=== PATIENT | male | born 1985 | race African-American/Black ===

== ENCOUNTER 2024-08-05 12:45 | Inpatient (IN) | payer OTHER ==
[2024-08-05 13:54] VITALS: BMI 28.8
[2024-08-05] MEDS ORDERED: chlordiazePOXIDE HCL 25 MG CAPSULE PO PRN (19:16)
[2024-08-05] MEDS ORDERED: MAG HYDROX/AL HYDROX/SIMETH 30 ML UNIT-DOSE CUP PO PRN (19:16)
[2024-08-05] MEDS ORDERED: BISMUTH SUBSALICYLATE 524 MG/30 ML PO PRN (19:16)
[2024-08-05] MEDS ORDERED: MAGNESIUM HYDROX 2400MG/30ML ORAL SUSPENSION 30 ML CUP PO PRN (19:16)
[2024-08-05] MEDS ORDERED: hydrOXYzine PAMOATE 25 MG CAPSULE (FP) PO PRN (19:16)
[2024-08-05] MEDS ORDERED: BENZONATATE 200 MG CAPSULE PO PRN (19:16)
[2024-08-05] MEDS ORDERED: ONDANSETRON *ODT* 4 MG TABLET SL PRN (19:16)
[2024-08-05] MEDS ORDERED: BENZOCAINE/MENTHOL (CHLORASEPTIC ) LOZENGE MM PRN (19:16)
[2024-08-05] MEDS ORDERED: ACETAMINOPHEN 325 MG TABLET (FP) PO PRN (19:16)
[2024-08-05] MEDS ORDERED: guaiFENesin 600 MG TABLET.ER (FP) PO PRN (19:16)
[2024-08-05] MEDS ORDERED: LOPERAMIDE HCL 2 MG CAPSULE PO PRN (19:16)
[2024-08-05] MEDS ORDERED: IBUPROFEN 400 MG TABLET (FP) PO PRN (19:16)
[2024-08-05] MEDS ORDERED: POLYETHYLENE GLYCOL (HEALTHYLAX) 3350 17 GM PACKET PO PRN (19:16)
[2024-08-05] MEDS ORDERED: DICYCLOMINE HCL 10 MG CAPSULE PO PRN (19:16)
[2024-08-05] MEDS ORDERED: METHOCARBAMOL 500 MG TABLET PO PRN (19:16)
[2024-08-05] MEDS ORDERED: IBUPROFEN 600 MG TABLET (FP) PO PRN (19:16)
[2024-08-05] MEDS ORDERED: NALOXONE (NARCAN) HCL 4 MG/0.1 ML SPRAY NS PRN (19:16)
[2024-08-05] MEDS: THIAMINE 100 MG TABLET PO SCH (22:14)
[2024-08-05] MEDS: MELATONIN 5 MG TABLETS PO SCH (22:14)
[2024-08-05] MEDS: chlordiazePOXIDE HCL 25 MG CAPSULE PO SCH (22:15)
[2024-08-06] MEDS: PRENATAL VITAMINS W/ FOLIC ACID TABLET (FP) PO SCH (10:38)
[2024-08-06 12:39] LABS: CHLORIDE 100 mmol/L (98-107); SODIUM 137 mmol/L (136-145)
[2024-08-06 13:04] LABS: ALBUMIN 3.8 g/dl (3.4-5.0); ANION GAP 7 mmol/L (4-13); BLOOD UREA NITROGEN 9.2 mg/dL (7-18); CALCIUM 9.5 mg/dL (8.5-10.1); CO2 30 mmol/L (21-32); GLUCOSE,RANDOM 104 mg/dL (74-106)
[2024-08-06 13:07] LABS: SGOT/AST 52 U/L (15-37); SGPT/ALT 181 U/L (13-61)
[2024-08-06 13:08] LABS: CREATININE 0.9 mg/dL (0.55-1.3)
[2024-08-06 13:09] LABS: BILIRUBIN,TOTAL 0.7 mg/dL (0.2-1); TOT PROT 7.4 g/dl (6.4-8.2)
[2024-08-06 13:10] LABS: ALK PHOS 51 U/L (45-117)
[2024-08-06 13:45] LABS: HEMATOCRIT 43.4 % (40.1-51.0); HEMOGLOBIN 15.2 g/dL (13.7-17.5); MEAN CELL VOLUME 92.9 fl (79.0-92.2); MEAN PLT VOLUME 11.8 fl (9.4-12.4); PLATELET COUNT 186 x10^3/uL (163-337); RDW 13.3 % (12.0-15.6)
[2024-08-07] MEDS: chlordiazePOXIDE HCL 25 MG CAPSULE PO SCH (05:56)
[2024-08-08] MEDS ORDERED: chlordiazePOXIDE HCL 10 MG CAPSULE PO PRN
[2024-08-08] MEDS: chlordiazePOXIDE HCL 10 MG CAPSULE PO SCH (05:49)
[2024-08-08] MEDS ORDERED: ACETAMINOPHEN 325 MG TABLET (FP) PO PRN (08:28)
[2024-08-08] MEDS: NALTREXONE HCL 50 MG TABLET PO SCH (10:10)
[2024-08-09] MEDS: chlordiazePOXIDE HCL 10 MG CAPSULE PO SCH (05:38)
[2024-08-09] MEDS: NALTREXONE HCL 50 MG TABLET PO ONE (13:14)
[2024-08-10] MEDS: chlordiazePOXIDE HCL 10 MG CAPSULE PO ONE (05:35)
[2024-08-10 09:11] VITALS: BP 132/75; PULSE 64; RESP 18; TEMP 96.9
[2024-08-10] MEDS: NALTREXONE HCL 50 MG TABLET PO SCH (10:11)
[2024-08-11] MEDS ORDERED: NALTREXONE MICROSPHERES (VIVITROL) 380 MG DISP.SYRIN IM ONE (06:00)
== END 2024-08-10 10:42 | disposition home or self-care (01) | DRG 775 ==
LOC: YASAS 12:45 → Y6N 20:16 → Y3N 20:23
PROVIDERS: ADMIT Allergy & Immunology; ATTEND Allergy & Immunology
PROC: HZ2ZZZZ Detoxification Services for Substance Abuse Treatment (ICD-10-PCS; principal; 2024-08-05)
DX: F10.230 Alcohol dependence with withdrawal, uncomplicated (principal); F17.210 Nicotine dependence, cigarettes, uncomplicated; F43.10 Post-traumatic stress disorder, unspecified; F41.9 Anxiety disorder, unspecified; G47.00 Insomnia, unspecified; D75.A Glucose-6-phosphate dehydrogenase (G6PD) deficiency without anemia; M54.50 Low back pain, unspecified; G89.29 Other chronic pain
CPT/HCPCS: 36415; 80053; 80305; 80307; 85027; 86780; 93005; 93010